=== PATIENT | female | born 1950 | race Caucasian/White ===

== ENCOUNTER 2017-08-12 18:19 | Emergency (ER) | payer MEDICARE, BC, OTHER ==
[~2017-08-12] VITALS: Ht 139.7 cm; Wt 84.4 kg
[2017-08-12] MEDS ORDERED: DIABETES PO (18:32)
[2017-08-12 19:49] VITALS: BP 138/80
== END 2017-08-12 19:49 | disposition home or self-care (01) ==
LOC: M.ERS 18:19
DX: M25.511 Pain in right shoulder (principal); E11.9 Type 2 diabetes mellitus without complications; Z88.1 Allergy status to other antibiotic agents; Z88.0 Allergy status to penicillin

== ENCOUNTER 2017-11-03 00:12 | Emergency (ER) | payer MEDICARE, BC, OTHER ==
[~2017-11-03] VITALS: Ht 139.7 cm; Wt 78.5 kg
[~2017-11-03 00:12] MED LIST: DIABETES PO
[2017-11-03] MEDS ORDERED: NEURONTIN 300300 M1 PO (00:21)
[2017-11-03] MEDS ORDERED: PAXIL10 MG PO (00:22)
[2017-11-03] MEDS ORDERED: METFORMIN HCL500 MG PO (00:22)
[2017-11-03] MEDS ORDERED: PRILOSEC10 MG PO (00:22)
[2017-11-03] MEDS ORDERED: IRON325 PO (00:23)
[2017-11-03] MEDS ORDERED: MAGOX 400400 MG PO (00:23)
[2017-11-03] MEDS ORDERED: REQUIP3 MG PO (00:23)
[2017-11-03] MEDS ORDERED: DIOVAN160 MG PO (00:23)
[2017-11-03] MEDS ORDERED: FLONASE 0.05%50 MCG NASAL (00:24)
[2017-11-03] MEDS ORDERED: HUMALOG100 UNIT/1 SUBQ (00:24)
[2017-11-03] MEDS ORDERED: LEVEMIR SUBQ (00:24)
[2017-11-03] MEDS ORDERED: PERCOCET 7.5-31 EACH PO (00:24)
[2017-11-03] MEDS ORDERED: ASPIR 8181 M1 PO (00:25)
[2017-11-03] MEDS ORDERED: VITAMIN B12-FO1 EAC1 PO (00:25)
[2017-11-03] MEDS ORDERED: VALIUM5 MG (00:26)
[2017-11-03] MEDS ORDERED: CHLORTHALIDONE25 MG PO (00:26)
[2017-11-03] MEDS ORDERED: LASIX 20 MG TAB20 MG PO (00:26)
[2017-11-03] MEDS ORDERED: CIPRO500 MG PO (00:27)
[2017-11-03 02:54] VITALS: BP 123/64
== END 2017-11-03 02:59 | disposition home or self-care (01) ==
LOC: M.ERS 00:12
DX: S59.802A Other specified injuries of left elbow, initial encounter (principal); E11.9 Type 2 diabetes mellitus without complications; I10 Essential (primary) hypertension; E21.2 Other hyperparathyroidism; Z88.1 Allergy status to other antibiotic agents; Z88.0 Allergy status to penicillin; Z88.2 Allergy status to sulfonamides; W18.39XA Other fall on same level, initial encounter; Y93.89 Activity, other specified; Y92.89 Other specified places as the place of occurrence of the external cause; Y99.8 Other external cause status

== ENCOUNTER 2017-11-11 00:04 | Emergency (ER) | payer MEDICARE, BC, OTHER ==
[~2017-11-11] VITALS: Ht 139.7 cm; Wt 79.4 kg
[~2017-11-11 00:04] MED LIST changes: +ASPIR 8181 M1 PO; +CHLORTHALIDONE25 MG PO; +CIPRO500 MG PO; +DIOVAN160 MG PO; +FLONASE 0.05%50 MCG NASAL; +HUMALOG100 UNIT/1 SUBQ; +IRON325 PO; +LASIX 20 MG TAB20 MG PO; +LEVEMIR SUBQ; +MAGOX 400400 MG PO; +METFORMIN HCL500 MG PO; +NEURONTIN 300300 M1 PO; +PAXIL10 MG PO; +PERCOCET 7.5-31 EACH PO; +PRILOSEC10 MG PO; +REQUIP3 MG PO; +VALIUM5 MG; +VITAMIN B12-FO1 EAC1 PO
[2017-11-11] MEDS ORDERED: AZITHROMYCIN 2250 MG PO (01:31)
[2017-11-11] MEDS ORDERED: PHENERGAN 25 MG25 M1 PO (01:31)
[2017-11-11] MEDS ORDERED: ACETAMINOPHEN-1 EAC1 PO (01:31)
[2017-11-11 01:55] VITALS: BP 147/62
== END 2017-11-11 01:55 | disposition home or self-care (01) ==
LOC: M.ERS 00:04
DX: J06.9 Acute upper respiratory infection, unspecified (principal); E11.9 Type 2 diabetes mellitus without complications; I10 Essential (primary) hypertension; E21.2 Other hyperparathyroidism; Z79.4 Long term (current) use of insulin; Z79.899 Other long term (current) drug therapy; Z88.0 Allergy status to penicillin; Z88.1 Allergy status to other antibiotic agents; Z88.2 Allergy status to sulfonamides

== ENCOUNTER 2017-12-18 22:08 | Emergency (ER) | payer BC, OTHER ==
[~2017-12-18] VITALS: Ht 139.7 cm; Wt 78.9 kg
[~2017-12-18 22:08] MED LIST changes: +ACETAMINOPHEN-1 EAC1 PO; +AZITHROMYCIN 2250 MG PO; +PHENERGAN 25 MG25 M1 PO
[2017-12-19] MEDS ORDERED: NABUMETONE 750750 M1 PO (00:45)
[2017-12-19 01:15] VITALS: BP 143/47
== END 2017-12-19 01:16 | disposition home or self-care (01) ==
LOC: M.ERS 22:08
DX: S93.491A Sprain of other ligament of right ankle, initial encounter (principal); E11.9 Type 2 diabetes mellitus without complications; I10 Essential (primary) hypertension; Z79.4 Long term (current) use of insulin; Z88.1 Allergy status to other antibiotic agents; Z88.0 Allergy status to penicillin; Z88.2 Allergy status to sulfonamides; W01.0XXA Fall on same level from slipping, tripping and stumbling without subsequent striking against object, initial encounter; Y93.89 Activity, other specified; Y92.89 Other specified places as the place of occurrence of the external cause; Y99.8 Other external cause status